=== PATIENT | male | born 1980 ===

== ENCOUNTER 2020-12-01 10:21 | Day surgery (SDC) | payer BC ==
[~2020-12-01 10:21] MED LIST: Lactated Ringers 1,000 ML IV SCH
[2020-12-01] MEDS ORDERED: Propofol 200 MG/20 ML SDV ONE (11:28)
[2020-12-01] MEDS ORDERED: Midazolam 1 MG/ML 2 ML SDV ONE (11:28)
--- NOTE | 2020-12-01 11:50 | PCM.PREANE ---
Preanesthetic Assessment - Anesthesia/Transfusion/Family Hx Anesthesia History: Prior Anesthesia Without Reaction Family History of Anesthesia Reaction: No Transfusion History: No Prior Transfusion(s) - Review of Systems General: No Symptoms Pulmonary: No Symptoms Cardiovascular: No Symptoms Neurological: No Symptoms Other: Reports: None - Physical Assessment NPO Status Date: 11/30/20 Vital Signs: Last Vital Signs Temp 96.1 F L 12/01/20 10:30 Pulse 83 12/01/20 10:30 Resp 16 12/01/20 10:30 BP 133/89 12/01/20 10:30 Pulse Ox 95 12/01/20 10:30 Height: 5 ft 10 in Weight: 104.326 kg ASA Class: 2 Mental Status: Alert & Oriented x3 Airway Class: Mallampati = 2 Dentition: Reports: Normal Dentition ROM/Head Extension: Full Lungs: Clear to Auscultation, Normal Respiratory Effort Cardiovascular: Regular Rate, Regular Rhythm - Allergies Allergies/Adverse Reactions: Allergies Allergy/AdvReac Type Severity Reaction Status Date / Time No Known Allergies Allergy Verified 11/25/20 07:41 - Blood Blood Available: No - Anesthesia Plan Pre-Op Medication Ordered: None - Acknowledgements Anesthesia Type Planned: General Anesthesia (tiva) Pt an Appropriate Candidate for the Planned Anesthesia: Yes Alternatives and Risks of Anesthesia Discussed w Pt/Guardian: Yes Pt/Guardian Understands and Agrees with Anesthesia Plan: Yes PreAnesthesia Questionnaire HEENT History: Reports: None Cardiovascular History: Reports: None Respiratory History: Reports: None Gastrointestinal History: Reports: Chronic Diarrhea Genitourinary History: Reports: None Other Musculoskeletal History: chronic hip pain Neurological History: Reports: Headaches, Chronic Psychiatric History: Reports: None Endocrine/Metabolic History: Reports: Obesity/BMI 30+, Other (See Below) Other Endocrine/Metabolic History: pre diabetic-diet controlled Hematologic History: Reports: None Immunologic History: Reports: None Oncologic (Cancer) History: Reports: None Dermatologic History: Reports: None - Past Surgical History Head Surgeries/Procedures: Reports: None HEENT Surgical History: Reports: Tonsillectomy Cardiovascular Surgical History: Reports: None Respiratory Surgical History: Reports: None GI Surgical History: Reports: Colonoscopy Other GI Surgeries/Procedures: hemorroidectomy Male Surgical History: Reports: Vasectomy Endocrine Surgical History: Reports: Pituitary Tumor Resection Neurological Surgical History: Reports: None Musculoskeletal Surgical History: Reports: None Oncologic Surgical History: Reports: None Dermatological Surgical History: Reports: None - SUBSTANCE USE Tobacco Use Within Last Twelve Months: Other (See Below) - HOME MEDS Home Medications: Home Meds Naproxen Sodium [Aleve] 1 tab PO ASDIRECTED PRN 11/26/20 [History] - CURRENT (IN HOUSE) MEDS Current Meds: Current Medications Lactated Ringer's (Ringers, Lactated) 1,000 mls @ 125 mls/hr IV ASDIRECTED KYRIE Last Admin: 12/01/20 10:40 Dose: 125 mls/hr Documented by: Discontinued Medications Midazolam HCl (Versed 1 Mg/Ml) Confirm Administered Dose 2 mg .ROUTE .STK-MED ONE Stop: 12/01/20 11:29 Propofol (Diprivan 20 Ml) Confirm Administered Dose 600 mg .ROUTE .STK-MED ONE Stop: 12/01/20 11:29
--- NOTE | 2020-12-01 13:19 | PCM.OPNOTE ---
- General Post-Op/Procedure Note Date of Surgery/Procedure: 12/01/20 Operative Procedure(s): colonoscopy with random biopsies Findings: slight irritation in the sigmoid. dictation number [id number] Pre Op Diagnosis: Loose stools Post-Op Diagnosis: slight irritation in the sigmoid colon Primary Surgeon: Chaim White Pathology: random biopsies Condition: Good
--- NOTE | 2020-12-01 14:12 | PCM48HPAN ---
Post Anesthesia Note - EVALUATION WITHIN 48HRS OF ANESTHETIC Vital Signs in Normal Range: Yes Patient Participated in Evaluation: Yes Respiratory Function Stable: Yes Airway Patent: Yes Cardiovascular Function Stable: Yes Hydration Status Stable: Yes Pain Control Satisfactory: Yes Nausea and Vomiting Control Satisfactory: Yes Mental Status Recovered: Yes Vital Signs: Last Vital Signs Temp 97.0 F 12/01/20 13:53 Pulse 72 12/01/20 13:53 Resp 15 12/01/20 13:53 BP 110/72 12/01/20 13:53 Pulse Ox 93 L 12/01/20 13:53
--- NOTE | 2020-12-01 15:11 | PCM.POSTAN ---
POST ANESTHESIA ASSESSMENT - MENTAL STATUS Mental Status: Alert, Oriented - VITAL SIGNS Vital Signs: Last Vital Signs Temp 97.0 F 12/01/20 13:53 Pulse 72 12/01/20 13:53 Resp 15 12/01/20 13:53 BP 110/72 12/01/20 13:53 Pulse Ox 93 L 12/01/20 13:53 - RESPIRATORY Respiratory Status: Respiratory Rate WNL, Airway Patent, O2 Saturation Stable - CARDIOVASCULAR CV Status: Pulse Rate WNL, Blood Pressure Stable - GASTROINTESTINAL GI Status: No Symptoms - POST OP HYDRATION Hydration Status: Adequate & Stable
--- NOTE | 2020-12-01 16:43 | OR ---
SURGEON: LUCIANO BALES MD DATE OF PROCEDURE: 12/01/2020 PREOPERATIVE DIAGNOSIS: Frequent loose stools. POSTOPERATIVE DIAGNOSIS: Normal-looking colon except there is some slight irritation in the sigmoid. PROCEDURE PERFORMED: Colonoscopy with random biopsies. ANESTHESIA: General with Anesthesia. EXTENT OF COLONOSCOPY: To the cecum. BOWEL PREP: Very good. LIMITATIONS: None. WITHDRAWAL TIME: 9.5 minutes. REASON FOR PROCEDURE: The patient is a pleasant 40-year-old gentleman who has been having loose stools and lower abdominal cramping. He goes to the bathroom 3 to 6 times per day. His abdominal exam improved since starting Imodium. He did have a CT scan, which was negative. He denies any blood in the stool. The patient does state he had a colonoscopy about a year ago that was normal. He did have a repair of a hemorrhoidectomy in the past. PROCEDURE IN DETAIL: Physical examination was performed. The major risks and benefits associated with the procedure were explained to the patient in detail. The patient verbalized understanding and agreement with the same. The patient was then connected to appropriate monitoring device and IV started. EKG, pulse, pulse oximetry, blood pressure, and capnography were monitored throughout the procedure. The patient's oxygen and sedation were provided by the anesthesiologist. The patient was placed in left lateral decubitus position. Sedation began. After adequate sedation was achieved, digital rectal exam was performed. No rectal masses or polyps felt. Now, a well-lubricated Olympus colonoscope was entered into the rectum and advanced under direct visualization to the level of the cecum. The cecum was identified by both visual and anatomic landmarks. Photographs were taken of the cecal cap. The scope was then slowly withdrawn in somewhat circular fashion looking at the color, texture, anatomy, and integrity of the mucosa from cecum to anal canal. He did have some liquid stool, which was suctioned and irrigated out for a good look at the mucosa. Because he did have chronic loose stools, they did random biopsies throughout the cecum to the descending colon to check for microscopic colitis. In the patient's sigmoid, mucosa was slightly irritated. This could be because of the prep though. I did do a biopsy of the sigmoid and sent them in a separate container. The scope was retroflexed in the rectum. Scope was completely removed, and the procedure was terminated. ENDOSCOPIC DIAGNOSIS: Potentially some slightly irritated sigmoid colon, otherwise, normal colon. RECOMMENDATIONS: Followup colonoscopy will depend on pathology, but most likely need another one in 10 years. Sooner if he develops signs or symptoms such as change in bowel habits or blood in the stool. ANA / MARY /[id number]
== END 2020-12-01 14:23 | disposition home or self-care (01) ==
LOC: MW.SDS 10:21
PROVIDERS: ATTEND Surgery
DX: K52.9 Noninfective gastroenteritis and colitis, unspecified (principal); K63.89 Other specified diseases of intestine; E66.9 Obesity, unspecified; Z98.890 Other specified postprocedural states; Z68.33 Body mass index [BMI] 33.0-33.9, adult
CPT/HCPCS: 45380; 88305; J2250; J2704; J7120; 00812